=== PATIENT | male | born 1975 | race Caucasian/White ===

== ENCOUNTER → 2023-12-20 06:18 | Day surgery (SDC) | payer OTHER, SELFPAY | LOC: GI 06:18 | PROVIDERS: ATTENDING PHYSICIAN Internal Medicine Gastroenterology | DX: Z12.11 Encounter for screening for malignant neoplasm of colon (principal); K64.8 Other hemorrhoids; Z80.0 Family history of malignant neoplasm of digestive organs | CPT/HCPCS: G0105 ==

== ENCOUNTER 2024-12-19 17:21 | Emergency (ER) | payer OTHER, SELFPAY ==
[2024-12-19 17:25] VITALS: BP 176/109
[2024-12-19 17:55] LABS: Hematocrit 43.6 % (39.0-52.0); Hemoglobin 14.9 g/dL (13.0-18.0); Mean Corp Hgb Conc. 34.2 g/dL (33.0-37.0); Mean Corpuscular Volume 86.3 fL (80.0-94.0); Nucleated Red Blood Cells % 0 % (-); Platelet Count 169 10^3/uL (130-400); Red Cell Dist. Width 12.1 % (11.5-14.5)
[2024-12-19 18:16] LABS: ALT (SGPT) 33 U/L (0-50); AST (SGOT) 28 U/L (17-59); Albumin 4.3 g/dl (3.5-5.0); Alkaline Phosphatase 45 U/L (38-126); Blood Urea Nitrogen 18 mg/dl (9-20); Calcium 9.0 mg/dl (8.4-10.2); Carbon Dioxide 27 mmol/L (22-30); Chloride 105 mmol/L (98-107); Glucose 110 mg/dl (70-99); Potassium 3.9 mmol/L (3.5-5.1); Sodium 138 mmol/L (135-145); Total Protein 7.6 g/dl (6.3-8.2); eGFR > 60.00
[2024-12-19 18:20] LABS: Troponin I < 0.012 ng/ml
--- NOTE | 2024-12-19 22:54 | ED.GENMED ---
History of Present Illness
<Devyn Fraser PA-C - Last Filed: 12/20/24 20:09>
General
Chief Complaint: Blood Pressure Problem
Source: patient
Exam Limitations: none
Time Seen by Provider: 12/19/24 22:27
History of Present Illness
History of Present Illness:
49-year-old male presents with overall sensation not feeling well elevated blood pressure, headaches dizziness and blurred vision. He states he has been getting blood pressure as high as 180 or 190 systolic. He has been on lisinopril 10 mg for
about 3 months but it was increased to 20 mg about 3 days ago. He has been on metoprolol 25 mg daily for quite some time. He does note intermittent chest discomfort over the past several days nonexertional nonpleuritic but random. He notes mild
to moderate diffuse kind of persistent headache with associated spinning sensation and blurry vision out of both eyes but denies any numbness or weakness in the arms or legs. He does not smoke. For his headaches he has been taking Excedrin on a
regular basis and occasionally ibuprofen. He drinks couple coffee a day.
Phy Exam
<Devyn Fraser PA-C - Last Filed: 12/20/24 20:09>
Physical Exam
Physical Exam:
General: Well-appearing male no acute respiratory distress
HEENT: Normal cephalic atraumatic pupils equal round react light face symmetric
Heart: Regular rate and rhythm
Lungs: Clear no wheeze
Extremities: No cyanosis or edema
Skin is warm no rash
Neurological exam: Alert and oriented no facial asymmetry good strength and sensation to the upper and lower extremities
Course
<Devyn Fraser PA-C - Last Filed: 12/20/24 20:09>
Orders/Labs/Results
Orders:
Orders
12/19/24 17:30
Electrocardiogram (*1) Urgent
Reason for Study: Chest Pain
Cardiac Monitoring- Treatment ONCE
EKG- Treatment ONCE
IV Insert/Care/Rem.- Treatment PRN
O2 Therapy [RESP] Urgent
Titrate/Wean O2 to maintain O2 sat greater than (%): 90
Special Instructions: Maintain sats >/=90%
Pulse Ox/spot Check [RESP] Urgent
Quantity: 1
Special Instructions: ON ROOM AIR
12/19/24 17:38
Complete Blood Count/With Diff Urgent
Comprehensive Metabolic Panel Urgent
Troponin I Urgent
12/19/24 22:52
HydrALAZINE [Apresoline] 10 mg IV NOW STA
12/20/24 00:03
CT Head W/o Iv Contrast Urgent
Reason For Exam: headache, elevated BP
12/20/24 00:25
Clonidine [Catapres] 0.1 mg PO NOW STA
Abnormal Lab Results
12/19/24
17:38
MPV 10.7 H fL
(7.4-10.4)
Glucose 110 H mg/dl
(70-99)
12/19/24 17:38
12/19/24 17:38
Vital Signs
Initial and Last Documented VS:
Initial Vital Signs
Temp Pulse Resp BP Pulse Ox
98.4 F 75 22 176/109 97
12/19/24 17:25 12/19/24 17:25 12/19/24 17:25 12/19/24 17:25 12/19/24 17:25
Last Documented Vital Signs
Temp Pulse Resp BP Pulse Ox
98.4 F 76 18 139/95 97
12/19/24 17:25 12/20/24 01:50 EDT 12/20/24 01:50 EDT 12/20/24 01:50 EDT 12/20/24 00:45
<Bala Romero, - Last Filed: 12/20/24 01:41 EDT>
Orders/Labs/Results
Orders:
Orders
12/19/24 17:30
Electrocardiogram (*1) Urgent
Reason for Study: Chest Pain
Cardiac Monitoring- Treatment ONCE
EKG- Treatment ONCE
IV Insert/Care/Rem.- Treatment PRN
O2 Therapy [RESP] Urgent
Titrate/Wean O2 to maintain O2 sat greater than (%): 90
Special Instructions: Maintain sats >/=90%
Pulse Ox/spot Check [RESP] Urgent
Quantity: 1
Special Instructions: ON ROOM AIR
12/19/24 17:38
Complete Blood Count/With Diff Urgent
Comprehensive Metabolic Panel Urgent
Troponin I Urgent
12/19/24 22:52
HydrALAZINE [Apresoline] 10 mg IV NOW STA
12/20/24 00:03
CT Head W/o Iv Contrast Urgent
Reason For Exam: headache, elevated BP
12/20/24 00:25
Clonidine [Catapres] 0.1 mg PO NOW STA
Abnormal Lab Results
12/19/24
17:38
MPV 10.7 H fL
(7.4-10.4)
Glucose 110 H mg/dl
(70-99)
12/19/24 17:38
12/19/24 17:38
Vital Signs
Initial and Last Documented VS:
Initial Vital Signs
Temp Pulse Resp BP Pulse Ox
98.4 F 75 22 176/109 97
12/19/24 17:25 12/19/24 17:25 12/19/24 17:25 12/19/24 17:25 12/19/24 17:25
Last Documented Vital Signs
Temp Pulse Resp BP Pulse Ox
98.4 F 76 18 139/95 97
12/19/24 17:25 12/20/24 01:50 EDT 12/20/24 01:50 EDT 12/20/24 01:50 EDT 12/20/24 00:45
<Devyn Fraser PA-C - Last Filed: 12/20/24 20:09>
MDM/Problems Addressed
Differential Diagnosis Includes:
Patient with headache dizziness blurry vision not feeling well as well as intermittent atypical chest discomfort in the setting of hypertension. Recent increase in lisinopril has not helped. No neurologic deficit but given his symptoms order CT of
the head. Recheck of blood pressure room still elevated. Will try hydralazine here. Labs with negative troponin normal kidney function EKG shows sinus rhythm with a right bundle branch block and no ischemic changes
<Devyn Fraser PA-C - Last Filed: 12/20/24 20:09>
*Pulse Oximetry
SaO2: 99
Oxygen Mode of Delivery: Room air
Patient hypoxic: no
<Bala Romero DO - Last Filed: 12/20/24 01:41 EDT>
*Critical Care Note
Total Time (30-74mins, 75-104mins- exclusive of procedures): Not Applicable
<DO Ferny Mortensen Last Filed: 12/20/24 01:41 EDT>
Update Note
Update Note:
NAME: NILES LINTON
DATE OF EXAM: 12/20/2024
Patient No: [id number]
Physician: CORTNEY
Date of : 1975
Past Medical History (entered by Technologist):
Reason For Exam (entered by Technologist):
Other Notes (entered by Technologist): On lisinopril that was increased to 20mg and Metoprolol 25mg. With continued dizziness, fatigue, numbness. With headaches and has been taking exedrin every day. Also with 'something in my chest'
No prior
Additional Information (per [facility]):
CT head without contrast
Comparison exam: None
IMPRESSION:
No acute intracranial hemorrhage.
No acute intracranial abnormality.
Case finalized on 12/20/24 01:33 EST
Emilia Jones M.D.
This report has been electronically signed and verified by the Radiologist whose name is printed above.
ED Attending Note
<Devyn Fraser PA-C - Last Filed: 12/20/24 20:09>
-
Portions of this chart may have been created with voice recognition software.� Occasional wrong word or��sound alike� substitutions may have occurred due to the inherent limitations of voice recognition software.
<Bala Romero DO - Last Filed: 12/20/24 01:41 EDT>
ED Attending Note
Patient seen and examined by attending physician: Yes
I performed a history and physical exam of patient and discussed management with resident, I reviewed resident's note and agree with documented findings and plan of care.: Yes
ED Attending Note:
Pleasant 49-year-old male presents to the emergency department with high blood pressure and dizziness. Patient seen in conjunction with the MELISSA . I reviewed and agreed with his history and treatment plan. Patient is awake alert and oriented and
seems in no acute distress. Blood pressure has been fluctuating while in the department. Plan is to add hydralazine. Patient to follow-up
Patient's blood pressure came down even before Catapres was given. He is feeling better at this point. Will prescribe hydralazine. He will follow-up with Dr. Fong. Put in the chest pain follow-up online.
Discharge Plan
Departure
Patient Disposition: Home (Routine Discharge)
Date of Disposition: 12/20/24
Time of Disposition: 01:37
Patient with high blood pressure during this ER visit?: Yes
Condition: Good
Discharge Problem:
High blood pressure, Dizziness
Instructions: High Blood Pressure (DC), Dizziness in adults - ED (DC), Chest Pain CBC Follow Up
Prescriptions:
New
hydralazine 10 mg tablet
10 mg PO DAILY Qty: 10 0RF
No Action
multivitamin Tablet
1 tab PO DAILY
cetirizine [Zyrtec] 10 mg Tablet
10 mg PO DAILY
Advil Cold and Sinus 30-200 mg Capsule
1 cap PO PRN PRN (Reason: allergies)
acetaminophen [Tylenol] 325 mg Tablet
650 mg PO Q6H PRN (Reason: pain)
vitamin B complex [B Complex-Vitamin B12] Tablet
1 tab PO DAILY
metoprolol succinate 25 mg Tablet Extended Release 24 Hr
25 mg PO DAILY
Excedrin Migraine 250-250-65 mg Tablet
1 tab PO PRN PRN (Reason: migraine)
oxycodone 5 mg tablet
5 - 10 mg PO Q4HPRN PRN (Reason: moderate to severe pain) Qty: 20 0RF
Referrals:
Balta Martinez DO [Family Provider, Family Practice]
Activity Restrictions/Additional Instructions:
Thank You for choosing [facility].
It was a pleasure meeting you and taking part in your care. We hope for your continued healing and wellness.
Please read discharge instructions in their entirety. However, they are for general education and may not describe your exact diagnosis at discharge. Information on your ER visit and medical conditions were discussed with you along with appropriate
follow up information...
If indicated, please take your medications as instructed and indicated on discharge paperwork.
Please schedule a follow up appointment as directed. Call to schedule an appointment
Please return to the emergency department with ANY change in, persisting, or worsening of symptoms. If any of your symptoms do not improve, or persist, or become more severe within 6-12 hours, please return to the emergency department for further
care.
Please return to the emergency department if you develop a headache, neck pain/stiffness, fever greater than 100.4F, chest pain, shortness of breath, persistent nausea, vomiting, slurred speech, difficulty walking, numbness/tingling, weakness, signs
of infection or any other symptoms that are worrisome to you.
If you have any questions or concerns please do not hesitate to call the Hospital at .
Interventions
Interventions:
*Risk Screen - Suicide Last Done: 12/19/24 17:25
*General Assessment Last Done: 12/19/24 17:25
*Neglect/Abuse Screening Last Done: 12/19/24 17:25
*ED- Fall Risk Assessment Last Done: 12/20/24 00:00
*ED COVID-19 Vaccine History Last Done: 12/20/24 00:00
*ED Influenza Vaccine History Last Done: 12/20/24 00:00
*Nursing Disposition Last Done: 12/20/24 01:50
ED- Cardiac Assessment Last Done: 12/19/24 23:30
ED- Neurological Assessment Last Done: 12/19/24 23:30
ED- Pulmonary Assessment Last Done: 12/19/24 23:30
Discharge Date and Time
Discharge Date/Time: 12/20/24 01:51 EDT
Print Language: BULGARIAN
[2024-12-19 23:01] VITALS: BP 174/119
[2024-12-19] MEDS: APRESOLINE 10 MG IV (23:12)
[2024-12-19 23:13] VITALS: BP 194/117
[2024-12-19 23:15] VITALS: BP 183/117
[2024-12-19 23:30] VITALS: BP 177/122
[2024-12-19 23:45] VITALS: BP 170/101
[2024-12-20] VITALS (7 sets, daily range): BP systolic 139–162; BP diastolic 89–106
[2024-12-20] MEDS: CATAPRES 0.1 MG PO (00:36)
== END 2024-12-20 01:51 | disposition home or self-care (01) ==
LOC: EMR 17:21
PROVIDERS: Emergency Medicine; EMERGENCY PHYSICIAN Student in an Organized Health Care Education/Training Program; FAMILY PHYSICIAN Family Medicine
DX: R42 Dizziness and giddiness (principal); I10 Essential (primary) hypertension; Z79.899 Other long term (current) drug therapy
CPT/HCPCS: 99284; 96374; 70450; 80053; 84484; 85025; 93005

== ENCOUNTER → 2025-01-05 09:16 | Outpatient (REF) | payer OTHER, SELFPAY | LOC: HWRCS 09:16 | PROVIDERS: ATTENDING PHYSICIAN Internal Medicine; FAMILY PHYSICIAN Internal Medicine | DX: I49.1 Atrial premature depolarization (principal); I10 Essential (primary) hypertension; I77.810 Thoracic aortic ectasia; I45.10 Unspecified right bundle-branch block | CPT/HCPCS: 93306 ==